=== PATIENT | female | born 1945 | race Two or more races ===

== ENCOUNTER 2021-03-01 07:34 | Day surgery (SDC) | payer OTHER | END 2021-03-01 10:20 | disposition home or self-care (01) | LOC: AMB-ENDOS 07:34 | PROVIDERS: ATTEND Colon & Rectal Surgery | DX: K63.5 Polyp of colon (principal); Z20.822 Contact with and (suspected) exposure to COVID-19; Z12.11 Encounter for screening for malignant neoplasm of colon ==